=== PATIENT | male | born 1985 | race Caucasian/White ===

== ENCOUNTER 2016-12-26 19:34 | Emergency (ER) | payer SELFPAY ==
--- NOTE | ~2016-12-26 | ER ---
PATIENT'S NAME: TIMBO TITUS [facility] AGE: 31 Y [address] ROOM: [place] [id number] LOCATION: [facility] ADMIT DATE: 12/26/2016 ER/Outpatient Report DISCHARGE DATE: 12/26/2016 FAMILY PHYSICIAN: Daryl Saldaña MD ATTENDING PHYSICIAN: Penny Pate Time of Arrival: 1934 hours. Time of Evaluation: 1945 hours. CHIEF COMPLAINT: Abdominal pain. HISTORY OF PRESENT ILLNESS: This is a 31-year-old male who presents to the ER. He states he is having pain around his umbilicus. He states it is sharp in nature and does radiate into the right side of his abdomen. He states it is a dull, but he notices it all the time. He states it first started a couple of days ago. He has had no nausea or vomiting. No diarrhea. No constipation. No fevers but he has had some chills. He denies any troubles with urination. He states he has never had anything like this before. ALLERGIES: NO KNOWN ALLERGIES. MEDICATIONS: None. PAST MEDICAL HISTORY: Anxiety and colitis. PAST SURGERIES: Shoulder surgery. SOCIAL HISTORY: Smokes pack a day for last 3 years. Drinks alcohol rarely. REVIEW OF SYSTEMS: A 10-point review of systems was completed and was negative with the exception of those discussed in the HPI. PHYSICAL EXAMINATION: VITAL SIGNS: Height 6 feet; stated weight 85.6 kilograms; taken blood pressure is 145/89; pulse 73; respirations 16; temperature 97.7 degrees tympanically; saturations 93% on room air. [place] Coma Score is 15. GENERAL: Alert, calm, well-developed male, in mild distress. PATIENT'S NAME: TIMBO TITUS [facility] AGE: 31 Y [address] ROOM: [place] [id number] LOCATION: [facility] ADMIT DATE: 12/26/2016 ER/Outpatient Report DISCHARGE DATE: 12/26/2016 FAMILY PHYSICIAN: Daryl Saldaña MD ATTENDING PHYSICIAN: Penny Pate HEENT: Head, normocephalic. Eyes; pupils are equal and reactive to light. Does display moist mucous membranes. LUNGS: Clear to auscultation bilaterally. No wheeze or crackles. Normal respiratory effort. HEART: Regular rate and rhythm with no lifts, thrills, or murmurs. ABDOMEN: Soft. He does have tenderness in his umbilicus area. He does guard in that area with palpation. He does have good bowel sounds throughout. No masses were palpated. SKIN: I did not appreciate any erythema to the umbilicus area or drainage there either. EXTREMITIES: No clubbing, cyanosis, or edema. Has full range of motion of all limbs. LABORATORY DATA AND X-RAYS: CBC; white count is 17.6, hemoglobin 16.2, platelets 151, ANC is 13.4. CMS; potassium is 3.6, otherwise, unremarkable. Urinalysis is negative for any infection. CT scan was done with IV contrast, and it was a normal CT and reported by night Radiology. IMPRESSION: Abdominal pain. ASSESSMENT AND PLAN: Discussed the patient's care with Dr. Pate. Dr. Pate also evaluated the patient. We did start an IV, did give him some IV fluids along with morphine for his pain. The patient feels comfortable going home. I will send him home with some Percocet to use as directed. I advised him to do clear liquid diet, and have him follow up with his primary care physician tomorrow. The patient understands and agrees with care. JIMMY JOHNSON PA-C FOR PENNY PATE DO ACTiffani/fernandol /[id number] ATTENDING ADDENDUM: I saw and evaluated the patient. I have discussed with the PA, agree with the PA's findings and plan and agree with the documented note above. Of note the patient does have some mild tenderness periumbilically. He has no TTP to the right lower quadrant. He has no involuntary guarding, rebound, or rigidity. He continues to have a nonsurgical abdominal exam throughout his ED course. I do feel he is safe for further outpatient evaluation. PENNY PATE DO d: 12/27/16 0312 t: 01/06/17 0114, OUTPATIENT REPORT
[~2016-12-26 19:34] MED LIST: CELEXA10 MG PO; DOXYCYCLINE100 MG PO; IBUPROFEN800 MG PO; LEVAQUIN750 MG PO; LEXAPRO10 MG PO; PERCOCET 5-3251 EACH PO; SKELAXIN800 MG PO; XANAX0.5 MG PO
[2016-12-26 20:19] LABS: BILIRUBIN URINE NEGATIVE (NEGATIVE); BLOOD URINE NEGATIVE /UL (NEGATIVE); COLOR URINE YELLOW (YELLOW); GLUCOSE URINE NEGATIVE (NEGATIVE); KETONE URINE NEGATIVE (NEGATIVE); LEUKOCYTES URINE NEGATIVE /UL (NEGATIVE); NITRITE URINE NEGATIVE (NEGATIVE); PROTEIN URINE NEGATIVE (NEGATIVE); TURBIDITY URINE CLEAR (CLEAR); UROBILINOGEN URINE NORMAL (NORMAL)
[2016-12-26 20:20] LABS: BASOPHIL # 0.1 K/uL (0.0-0.2); BASOPHIL % 0.5 %; EOSINOPHIL # 0.4 K/uL (0.0-0.5); EOSINOPHIL % 2.3 %; HEMATOCRIT 46.6 % (37.0-53.0); HEMOGLOBIN 16.2 g/dL (12.0-17.0); IMMATURE GRANULOCYTE # 0.1 K/uL (0.0-0.3); IMMATURE GRANULOCYTE % 0.3 %; MCH 30.1 pg (27.0-34.0); MCHC 34.8 gm/dL (32.0-36.5); MCV 86.6 fl (83.0-98.0); MONOCYTE # 0.7 K/uL (0.0-1.0); MPV 9.1 fl (9.4-12.4); NEUTROPHIL # (ANC) 13.4 K/uL (1.4-9.0); NEUTROPHIL % 75.9 %; NRBC % 0 /100WBC (0-0.00); PLATELET COUNT 251 K/uL (150-450); RBC 5.38 M/uL (4.00-6.00); RDW-CV 12.3 % (11.9-14.6)
[2016-12-26 20:21] LABS: WBC 17.6 K/uL (4.0-11.0)
[2016-12-26 20:39] LABS: ALBUMIN 3.8 gm/dL (3.5-5.0); ALK PHOS 79 IU/L (33-138); ALT 20 IU/L (12-78); ANION GAP 14.6 (10.0-19.0); AST 16 IU/L (10-40); BLOOD UREA NITROGEN 11 mg/dL (6-24); CALCIUM 8.4 mg/dL (8.5-10.5); CHLORIDE 107 mMol/L (96-110); CO2 23 mMol/L (22-32); CREATININE 1.1 mg/dL (0.6-1.3); ESTIMATED GFR (MDRD EQUATION) > 60; POTASSIUM 3.6 mMol/L (3.7-5.1); SODIUM 141 mMol/L (135-145); TOTAL BILIRUBIN 0.3 mg/dL (0.0-1.5); TOTAL PROTEIN 6.9 g/dL (6.0-8.4)
== END 2016-12-26 22:05 | disposition disaster alternative care site (69) ==
LOC: GMED 19:34
PROVIDERS: Physician Assistant Medical
DX: R10.33 Periumbilical pain (principal); F41.9 Anxiety disorder, unspecified; F17.210 Nicotine dependence, cigarettes, uncomplicated
CPT/HCPCS: J2270; J7030; Q9967